=== PATIENT | female | born 1970 | race African-American/Black ===

== ENCOUNTER 2017-07-20 20:39 | Emergency (ER) | payer OTHER ==
[~2017-07-20] VITALS: Ht 172.7 cm; Wt 94.8 kg
[2017-07-20] MEDS ORDERED: METOCLOPRAMIDE HCL 10MG/2ML VIAL IV ONE (21:45)
[2017-07-20] MEDS ORDERED: DIPHENHYDRAMINE 50MG/ML VIAL IV ONE (21:45)
[2017-07-20 23:10] LABS: BASOPHILS % 0.3 % (0.0-2.0); EOSINOPHILS % 0.7 % (0.0-5.0); HEMATOCRIT. 36.4 % (36.0-48.0); HEMOGLOBIN. 11.9 g/dL (12.0-16.0); LYMPHOCYTES % 23.9 % (20.0-50.0); MEAN CORPUSCULAR HEMOGLOBIN 26.8 pg (28.0-32.0); MEAN CORPUSCULAR VOLUME 82.1 fL (81.0-99.0); MEAN PLATELET VOLUME 7.8 fl (7.4-10.4); MONOCYTES % 6.3 % (2.0-8.0); NEUTROPHILS % 68.8 % (40.0-76.0); PLATELET 173 x1000/uL (130-400); RED BLOOD CELL COUNT 4.43 mill/uL (4.2-5.4); RED CELL DISTRIBUTION WIDTH 15.6 % (11.6-14.6)
[2017-07-20 23:14] LABS: CHLORIDE 103 mEq/L (98-107)
[2017-07-20 23:15] LABS: HCG SCREEN NEGATIVE
[2017-07-20] MEDS ORDERED: TRAMADOL 50MG TABLET PO ONE (23:15)
[2017-07-20 23:17] LABS: INR 1.1
[2017-07-20 23:19] LABS: CARBON DIOXIDE 28 mEq/L (21-32)
[2017-07-20] MEDS ORDERED: POTASSIUM CHLORIDE 20MEQ TABLET SR PO ONE (23:30)
[2017-07-20 23:55] VITALS: BP 149/93
== END 2017-07-20 23:56 | disposition home or self-care (01) ==
LOC: ER 21:20
DX: R51 Headache (principal); E87.6 Hypokalemia; I10 Essential (primary) hypertension
CPT/HCPCS: 36415; 80048; 84703; 85025; 85610; 85730; 96374; 96375; 99284; J1200; J2765; Z7610

== ENCOUNTER 2017-07-21 09:24 | Emergency (ER) | payer OTHER ==
[~2017-07-21] VITALS: Ht 167.6 cm; Wt 70.0 kg
[2017-07-21] MEDS ORDERED: SODIUM CHLORIDE 0.9% 1,000 ML IV ONE (09:56)
[2017-07-21] MEDS ORDERED: IOHEXOL-350 100 ML BOTTLE ONE (10:01)
[2017-07-21] MEDS ORDERED: SODIUM CHLORIDE 0.9% 10ML VIAL ONE (10:01)
[2017-07-21 10:21] LABS: BASOPHILS % 0.2 % (0.0-2.0); EOSINOPHILS % 0.5 % (0.0-5.0); HEMATOCRIT. 38.4 % (36.0-48.0); HEMOGLOBIN. 12.7 g/dL (12.0-16.0); MEAN CORPUSCULAR HEMOGLOBIN 27.2 pg (28.0-32.0); MEAN CORPUSCULAR VOLUME 82.2 fL (81.0-99.0); MONOCYTES % 3.7 % (2.0-8.0); NEUTROPHILS % 87.6 % (40.0-76.0); PLATELET 181 x1000/uL (130-400); RED BLOOD CELL COUNT 4.67 mill/uL (4.2-5.4); RED CELL DISTRIBUTION WIDTH 15.7 % (11.6-14.6)
[2017-07-21 10:31] LABS: CLARITY URINE CLEAR (CLEAR); COLOR URINE YELLOW (YELLOW); GLUCOSE URINE 2+ (NEGATIVE); KETONES URINE NEGATIVE (NEGATIVE); LEUKOCYTE ESTERASE URINE NEGATIVE (NEGATIVE); NITRITE URINE NEGATIVE (NEGATIVE); OCCULT BLOOD URINE TRACE (NEGATIVE); PROTEIN URINE NEGATIVE (NEGATIVE); SPECIFIC GRAVITY URINE 1.012 (1.005-1.030); UROBILINOGEN URINE 0.2 E.U./dL (0.2-1.0)
[2017-07-21 10:34] LABS: AMMONIA 23 uMol/L (<32)
[2017-07-21 10:36] LABS: *AMPHETAMINES SCREEN URINE NEGATIVE (NEGATIVE); *BARBITURATES SCREEN URINE NEGATIVE (NEGATIVE); *BENZODIAZEPINES SCREEN URINE NEGATIVE (NEGATIVE); *COCAINE SCREEN URINE NEGATIVE (NEGATIVE); CANNABINOID URINE SCREEN NEGATIVE (NEGATIVE); METHADONE URINE SCREEN NEGATIVE (NEGATIVE); OPIATES URINE SCREEN NEGATIVE (NEGATIVE); PHENCYCLIDINE URINE SCREEN NEGATIVE (NEGATIVE)
[2017-07-21 10:37] LABS: HCG SCREEN NEGATIVE
[2017-07-21 10:39] LABS: CARBON DIOXIDE 25 mEq/L (21-32); CHLORIDE 98 mEq/L (98-107); CREATINE KINASE 310 IU/L (26-192); ETHANOL BLOOD < 10 mg/dL; TROPONIN I < 0.02 ng/mL (0.00-0.04)
[2017-07-21] MEDS ORDERED: SODIUM CHLORIDE 0.9% 1000ML BAG (SEPSIS BOLUS) IV ONE (11:00)
[2017-07-21] MEDS ORDERED: DEXAMETHASONE 10 MG/ML VIAL IV ONE (11:00)
[2017-07-21] MEDS ORDERED: PHENYTOIN SODIUM 1,000 MG in SODIUM CHLORIDE 0.9% 100 ML IV ONE (11:00)
[2017-07-21 13:41] VITALS: BP 131/80
== END 2017-07-21 14:03 | disposition short-term general hospital (02) ==
LOC: ER 09:29 → CANBEDREQ 12:41 → ER 14:03
DX: I60.9 Nontraumatic subarachnoid hemorrhage, unspecified (principal); E87.2 Acidosis; I10 Essential (primary) hypertension
CPT/HCPCS: 36415; 51702; 70450; 70496; 80053; 80305; 80307; 80329; 81001; 82140; 82550; 82962; 83605; 83690; 84443; 84484; 84703; 85025; 87040; 87086; 93005; 96361; 96365; 96366; 96375; 99291; A4216; G0482; J1100; J1165; J7030; J7040; Q9967; Z7610; J7050